=== PATIENT | male | born 1990 | race Two or more races ===

== ENCOUNTER 2020-07-25 07:08 | Inpatient (IN) | payer OTHER ==
[~2020-07-25] VITALS: Ht 172.7 cm; Wt 127.0 kg
--- NOTE | 2020-07-25 07:24 | NUR ---
first contact with pt. pt c/o upper mid abd pain since last night. denies diarrhea. pt stated "i can't keep water or food down." hx of ulcers. pt's aox4. resps even and unlabored. bp/spo2 monitors in place. call light within reach. pa at bedside for assessment at this time.
[2020-07-25] MEDS ORDERED: ONDANSETRON 2MG/ML, 2ML IVPush ONE (07:30)
[2020-07-25] MEDS ORDERED: SODIUM CHLORIDE 0.9% 1,000ML IVBOLUS ONE (07:30)
[2020-07-25] MEDS ORDERED: FAMOTIDINE 20 MG/2 ML IVPush ONE (07:30)
[2020-07-25] MEDS ORDERED: ONDANSETRON 2MG/ML, 2ML ONE ×3 (07:32→18:13)
[2020-07-25] MEDS ORDERED: FAMOTIDINE 20 MG/2 ML ONE (07:32)
[2020-07-25] MEDS ORDERED: MORPHINE SULFATE 4 MG/ML, 1ML ONE ×4 (07:32→10:21)
--- NOTE | 2020-07-25 07:50 | NUR ---
pt amb to br and back to room with steady gait. ua sent.
[2020-07-25 08:00] LABS: BASOPHILS % (AUTO) 0 % (0-1); EOSINOPHILS % (AUTO) 0 % (1-7); LYMPHOCYTES % (AUTO) 3 % (22-44); MEAN CORPUSCULAR HEMOGLOBIN 31.1 pg (27.5-34.5); MEAN CORPUSCULAR HGB CONC 33.7 g/dL (33.2-36.2); MEAN PLATELET VOLUME 8.2 fL (7.4-10.4); MONOCYTES % (AUTO) 4 % (2-9); NEUTROPHILS % (AUTO) 93 % (42-75); PLATELET COUNT 321 x10^3/uL (130-400); RED BLOOD COUNT 4.51 x10^6/uL (4.38-5.82); RED CELL DISTRIBUTION WIDTH 13.8 % (9.4-14.8)
[2020-07-25] MEDS: MORPHINE SULFATE 4 MG/ML, 1ML IVPush PRN ×4 (08:00→10:22)
--- NOTE | 2020-07-25 08:01 | NUR ---
piv est on l hand with no complications. pt medicated per emar. pt tolerated well.
[2020-07-25 08:06] LABS: ALANINE AMINOTRANSFERASE 48 U/L (12-78); ALBUMIN 3.9 g/dL (3.4-5.0); ANION GAP 8 mmol/L (5-15); CALCIUM 9.2 mg/dL (8.5-10.1); CHLORIDE 109 mmol/L (98-107)
[2020-07-25 08:09] LABS: ALKALINE PHOSPHATASE 92 U/L (45-117); BILIRUBIN,TOTAL 0.6 mg/dL (0.2-1.0); CREATININE 0.96 mg/dL (0.7-1.3); TOTAL PROTEIN 8.5 g/dL (6.4-8.2)
[2020-07-25 08:13] LABS: MICROSCOPIC NOT IND
[2020-07-25 08:17] LABS: MD SCAN
--- NOTE | 2020-07-25 08:21 | NUR ---
pt c/o abd cramp/r shoulder pain with diaphoresis. hr is 110. ekg done at bedside. bus driver/monitor placed. pa notified. pt medicated 2nd dose of morphine for pain at this time. us delay due to pain.
--- NOTE | 2020-07-25 08:34 | NUR ---
pt stated"i feel a little bit better, but i can't do ultra sound yet. i'll let you know." vss now. pt's aox4. resps even and unlabored.
--- NOTE | 2020-07-25 08:44 | NUR ---
pt stated "my stomach pain is gone but i feel sharp pain r chest to r groin with right shoulder pain. i can't lay flat yet." pa notified. pa will order one more dose of pain med for us. pt agreed with poc.
--- NOTE | 2020-07-25 08:55 | NUR ---
pt medicated per emar for pain. pt tolerated well.
--- NOTE | 2020-07-25 10:13 | NUR ---
BREAK RN: PT UP TO BATHROOM, GAIT STEADY
--- NOTE | 2020-07-25 10:19 | NUR ---
MOUTH SWAB GIVEN AT THIS TIME. PT STATED "PAIN IS COMING BACK AGAIN"
--- NOTE | 2020-07-25 10:24 | NUR ---
PT MEDICATED PER EMAR FOR PAIN. PA NOTIFIED. VSS.
--- NOTE | 2020-07-25 10:37 | NUR ---
REPORT FROM GIULIA MONROY, ASSUME CARE OF PT AT THIS TIME. ADD ON ORDER FOR CT ABD/PELVIS.
--- NOTE | 2020-07-25 10:44 | NUR ---
PT TO CT.
[2020-07-25] MEDS ORDERED: OMNIPAQUE 350 MG/ML, 100ML BOTTLE ONE (10:57)
--- NOTE | 2020-07-25 11:09 | NUR ---
PT BACK FROM CT. PT STATES NO NAUSEA AT THIS TIME, PAIN SHARP AND RUQ/RLQ INTERMITTENT RATED 5-7/10. VSS/UPDATED IN COMPUTER. AWAITING CT READ.
--- NOTE | 2020-07-25 11:16 | NUR ---
CT READ BACK, PT FOR RECHECK.
[2020-07-25] MEDS ORDERED: OMEP-110 PO (11:19)
[2020-07-25] MEDS ORDERED: CEFOTETAN PMX 2GM/50ML 50 ML IVPB ONE (11:30)
[2020-07-25] MEDS ORDERED: HYDROmorphone 1 MG/ML, 1ML INJ ONE (11:34)
--- NOTE | 2020-07-25 11:36 | NUR ---
COVID SWAB COLLECTED BY PETERSON GILMORE. ERP NOTIFIED OF PT'S RETURNING PAIN. VO FOR DILAUDID 1MG IV OBTAINED. MED REQUEST TO PHARMACY FOR ANTIBIOTIC.
[2020-07-25] MEDS ORDERED: HYDROmorphone 1 MG/ML, 1ML INJ IV ONE (12:00)
--- NOTE | 2020-07-25 12:04 | NUR ---
REPORT TO DAVID, PT READY FOR TRANSPORT TO FLOOR. WHO FORM STARTED, TO GO WITH PT.
[2020-07-25 12:48] VITALS: BP 126/76
[2020-07-25] MEDS ORDERED: ONDANSETRON 2MG/ML, 2ML IVPush PRN (13:00)
[2020-07-25] MEDS ORDERED: morphine SULFATE 10 MG/ML, 1ML IVPush PRN (13:00)
[2020-07-25] MEDS ORDERED: hydrALAzine 20 MG/ML, 1ML IVPush PRN (13:00)
[2020-07-25 13:18] LABS: MEAN CORPUSCULAR HEMOGLOBIN 31.5 pg (27.5-34.5); MEAN CORPUSCULAR HGB CONC 34.1 g/dL (33.2-36.2); MEAN PLATELET VOLUME 8.1 fL (7.4-10.4); PLATELET COUNT 317 x10^3/uL (130-400); RED BLOOD COUNT 4.52 x10^6/uL (4.38-5.82); RED CELL DISTRIBUTION WIDTH 14.4 % (9.4-14.8)
[2020-07-25 13:42] LABS: MD YES
[2020-07-25 13:43] LABS: BAND#(MANUAL) 1.67 x10^3/uL; BANDS%(MANUAL) 9 % (0-7); LYMPH#(MANUAL) 0.56 x10^3/uL (1-3.4); LYMPHS% (MANUAL) 3 % (22-44); MONOS#(MANUAL) 0.56 x10^3/uL (0.3-2.7); MONOS% (MANUAL) 3 % (2-9); SEG#(MANUAL) 15.81 x10^3/uL (1.8-6.8); SEGS% (MANUAL) 85 % (42-75)
[2020-07-25 13:45] LABS: <PLATELET ESTIMATE> ADEQUATE; <PLT MORPHOLOGY> NORMAL PLT MORPH; <RBC MORPHOLOGY> NORMAL
[2020-07-25] MEDS: SODIUM CHLORIDE 0.9% 1,000 ML IV SCH (14:17)
[2020-07-25] MEDS ORDERED: EPINEPHRINE 1 MG/ML, 1ML ONE (15:55)
[2020-07-25] MEDS ORDERED: BUPIVACAINE/PF 0.5% ONE (15:55)
[2020-07-25] MEDS ORDERED: FENTANYL PF 250 MCG/5ML ONE (16:29)
[2020-07-25] MEDS ORDERED: MIDAZOLAM 1 MG/ML, 2ML ONE (16:29)
[2020-07-25] MEDS ORDERED: CHLORHEXIDINE 15 ML UDC PO ONE (16:30)
[2020-07-25] MEDS ORDERED: LACTATED RINGERS 1,000 ML IV SCH (16:30)
[2020-07-25] MEDS ORDERED: MEPERIDINE/PF 25MG/0.5ML IVPush PRN (17:00)
[2020-07-25] MEDS ORDERED: PROMETHAZINE 25 MG/ML, 1ML IVPush PRN (17:00)
[2020-07-25] MEDS ORDERED: HYDROmorphone 1 MG/ML, 1ML INJ IVPush PRN (17:00)
[2020-07-25] MEDS ORDERED: HALOPERIDOL 5 MG/ML IV PRN (17:00)
[2020-07-25] MEDS ORDERED: DIPHENHYDRAMINE 50 MG/ML, 1ML IVPush PRN (17:00)
[2020-07-25] MEDS ORDERED: hydrALAzine 20 MG/ML, 1ML IV PRN (17:00)
[2020-07-25] MEDS ORDERED: OXYcodone 5 MG/5 ML ORAL.SOL UDC PO PRN (17:00)
[2020-07-25] MEDS ORDERED: LABETALOL 5MG/ML, 20ML IV PRN (17:00)
[2020-07-25] MEDS ORDERED: FENTANYL PF 100 MCG/2ML ONE ×2 (17:40→18:50)
[2020-07-25] MEDS ORDERED: CEFAZOLIN 1,000 MG ONE (18:11)
[2020-07-25] MEDS ORDERED: SUCCINYLCHOLINE 20 MG/ML, 10ML ONE (18:11)
[2020-07-25] MEDS ORDERED: NEOSTIGMINE 1 MG/ML, 10ML ONE ×2 (18:11→18:13)
[2020-07-25] MEDS ORDERED: SUGAMMADEX 200 MG/2 ML IVPush ONE ×3 (18:11→18:13)
[2020-07-25] MEDS ORDERED: ROCURONIUM 10MG/ML,5ML ONE (18:11)
[2020-07-25] MEDS ORDERED: GLYCOPYRROLATE 0.2MG/1ML, 5ML ONE ×2 (18:11→18:13)
[2020-07-25] MEDS ORDERED: PROPOFOL 10 MG/ML, 20ML ONE (18:11)
[2020-07-25] MEDS ORDERED: OXYcodone 5 MG/5 ML ORAL.SOL UDC ONE (18:50)
[2020-07-25] MEDS: FENTANYL PF 100 MCG/2ML IV PRN ×3 (19:00→19:10)
[2020-07-25 20:29] VITALS: BP 135/84
[2020-07-25] MEDS: HYDROcodone/APAP 5/325 TABLET PO PRN (22:20)
[2020-07-26 00:29] VITALS: BP 138/89
[2020-07-26] MEDS: HYDROcodone/APAP 5/325 TABLET PO PRN ×6 (02:22→22:43)
[2020-07-26] MEDS: SODIUM CHLORIDE 0.9% 1,000 ML IV SCH ×2 (04:16→15:09)
[2020-07-26 04:18] VITALS: BP 127/83
[2020-07-26 05:33] LABS: CHLORIDE 107 mmol/L (98-107)
[2020-07-26 05:34] LABS: BASOPHILS % (AUTO) 0 % (0-1); EOSINOPHILS % (AUTO) 0 % (1-7); LYMPHOCYTES % (AUTO) 8 % (22-44); MEAN CORPUSCULAR HEMOGLOBIN 31.4 pg (27.5-34.5); MEAN CORPUSCULAR HGB CONC 33.8 g/dL (33.2-36.2); MEAN PLATELET VOLUME 8.3 fL (7.4-10.4); MONOCYTES % (AUTO) 4 % (2-9); NEUTROPHILS % (AUTO) 87 % (42-75); PLATELET COUNT 267 x10^3/uL (130-400); RED BLOOD COUNT 4.07 x10^6/uL (4.38-5.82); RED CELL DISTRIBUTION WIDTH 14.2 % (9.4-14.8)
[2020-07-26 05:42] LABS: ALANINE AMINOTRANSFERASE 84 U/L (12-78); ALBUMIN 2.9 g/dL (3.4-5.0); ALKALINE PHOSPHATASE 67 U/L (45-117); ANION GAP 5 mmol/L (5-15); BILIRUBIN,TOTAL 0.7 mg/dL (0.2-1.0); CALCIUM 8.4 mg/dL (8.5-10.1)
[2020-07-26 05:53] LABS: MD NO
[2020-07-26 07:23] VITALS: BP 114/73
[2020-07-26 14:00] VITALS: BP 137/85
[2020-07-26] MEDS: CEFEPIME 2 GM in DEXTROSE 5% 100 ML IV SCH ×2 (15:08→22:43)
[2020-07-26] MEDS: METRONIDAZOLE PMX 500MG/100ML 100 ML IV SCH (15:55)
[2020-07-26 19:44] VITALS: BP 128/81
[2020-07-27] MEDS: METRONIDAZOLE PMX 500MG/100ML 100 ML IV SCH ×3 (00:41→16:30)
[2020-07-27 00:43] VITALS: BP 123/81
[2020-07-27] MEDS: HYDROcodone/APAP 5/325 TABLET PO PRN ×4 (02:47→20:25)
[2020-07-27] MEDS: SODIUM CHLORIDE 0.9% 1,000 ML IV SCH ×2 (03:57→14:52)
[2020-07-27 05:35] LABS: BASOPHILS % (AUTO) 0 % (0-1); EOSINOPHILS % (AUTO) 1 % (1-7); LYMPHOCYTES % (AUTO) 12 % (22-44); MD NO; MEAN CORPUSCULAR HGB CONC 34.6 g/dL (33.2-36.2); MEAN PLATELET VOLUME 8.4 fL (7.4-10.4); MONOCYTES % (AUTO) 6 % (2-9); NEUTROPHILS % (AUTO) 81 % (42-75); PLATELET COUNT 238 x10^3/uL (130-400); RED BLOOD COUNT 3.73 x10^6/uL (4.38-5.82); RED CELL DISTRIBUTION WIDTH 13.7 % (9.4-14.8)
[2020-07-27 05:37] LABS: ALANINE AMINOTRANSFERASE 51 U/L (12-78); ALBUMIN 2.6 g/dL (3.4-5.0); ANION GAP 2 mmol/L (5-15); CALCIUM 8.4 mg/dL (8.5-10.1); CHLORIDE 107 mmol/L (98-107)
[2020-07-27 05:40] LABS: ALKALINE PHOSPHATASE 64 U/L (45-117); BILIRUBIN,TOTAL 0.3 mg/dL (0.2-1.0); CREATININE 0.76 mg/dL (0.7-1.3); TOTAL PROTEIN 6.6 g/dL (6.4-8.2)
[2020-07-27] MEDS: CEFEPIME 2 GM in DEXTROSE 5% 100 ML IV SCH ×2 (06:34→14:52)
[2020-07-27 08:29] VITALS: BP 119/78
[2020-07-27 12:30] VITALS: BP 128/82
[2020-07-27] MEDS: METOCLOPRAMIDE 5 MG/ML, 2ML IVPush SCH ×2 (13:10→18:12)
[2020-07-27 19:48] VITALS: BP 121/81
[2020-07-28 01:33] VITALS: BP 120/76
[2020-07-28] MEDS: CEFEPIME 2 GM in DEXTROSE 5% 100 ML IV SCH ×3 (01:37→17:30)
[2020-07-28] MEDS: METOCLOPRAMIDE 5 MG/ML, 2ML IVPush SCH ×3 (01:37→14:14)
[2020-07-28] MEDS: HYDROcodone/APAP 5/325 TABLET PO PRN ×3 (02:17→17:39)
[2020-07-28] MEDS: METRONIDAZOLE PMX 500MG/100ML 100 ML IV SCH ×2 (02:17→10:53)
[2020-07-28] MEDS: SODIUM CHLORIDE 0.9% 1,000 ML IV SCH ×2 (02:21→13:19)
[2020-07-28 05:46] LABS: BASOPHILS % (AUTO) 0 % (0-1); EOSINOPHILS % (AUTO) 2 % (1-7); LYMPHOCYTES % (AUTO) 23 % (22-44); MEAN CORPUSCULAR HEMOGLOBIN 31.3 pg (27.5-34.5); MEAN CORPUSCULAR HGB CONC 33.6 g/dL (33.2-36.2); MEAN PLATELET VOLUME 8.3 fL (7.4-10.4); MONOCYTES % (AUTO) 7 % (2-9); NEUTROPHILS % (AUTO) 67 % (42-75); PLATELET COUNT 274 x10^3/uL (130-400); RED BLOOD COUNT 3.74 x10^6/uL (4.38-5.82)
[2020-07-28 05:57] LABS: MD NO
[2020-07-28 07:34] VITALS: BP 125/84
[2020-07-28] MEDS ORDERED: AMOX1TAB64 PO (10:24)
[2020-07-28 14:03] VITALS: BP 132/86
[2020-07-28 17:37] VITALS: BP 136/82
== END 2020-07-28 18:06 | disposition home or self-care (01) | DRG 417 ==
LOC: ED 08:33 → EDIP 11:33 → SUATTDRO 11:37 → 4NE 12:26
PROVIDERS: ADMIT Family Medicine; ATTEND Internal Medicine
PROC: 0FT44ZZ Resection of Gallbladder, Percutaneous Endoscopic Approach (ICD-10-PCS; principal; 2020-07-25 17:00)
DX: K82.A1 Gangrene of gallbladder in cholecystitis (principal); K65.0 Generalized (acute) peritonitis; Z68.41 Body mass index [BMI] 40.0-44.9, adult; K82.A2 Perforation of gallbladder in cholecystitis; E66.01 Morbid (severe) obesity due to excess calories; J45.909 Unspecified asthma, uncomplicated; K21.9 Gastro-esophageal reflux disease without esophagitis; K76.0 Fatty (change of) liver, not elsewhere classified; F14.90 Cocaine use, unspecified, uncomplicated; Z20.822 Contact with and (suspected) exposure to COVID-19; F12.90 Cannabis use, unspecified, uncomplicated; F19.10 Other psychoactive substance abuse, uncomplicated; Z87.11 Personal history of peptic ulcer disease; Z90.49 Acquired absence of other specified parts of digestive tract; Z91.19 Patient's noncompliance with other medical treatment and regimen
CPT/HCPCS: 36415; 99285; S0020; 71045; 74177; 76700; 80053; 81003; 83690; 83735; 84100; 85025; 87635; 88304; 93005; G0378; J0171; J0690; J1170; J2250; J2405; J2704; J2710; J3010; Q9967; J0330; J2270; J2765; J7030; J7120